=== PATIENT | female | born 1975 | race Caucasian/White ===

== ENCOUNTER → 2025-02-06 | Day surgery (SDC) | payer MEDICAID ==
[~2025-02-06] VITALS: Ht 134.6 cm; Wt 60.3 kg
[~2025-02-06] MED LIST: ASPI-1497 PO; BUPIVACAINE HCL/PF 0.5% (5MG/ML) 10ML ONE; CEFAZOLIN SODIUM 1000MG/VIAL ONE; CETI-89 PO; DAPA10TA PO; FENTANYL CITRATE/PF 50MCG/ML 2ML VIAL ONE; GLIP10TA17 PO; GLYCOPYRROLATE 0.2 MG/ML 2ML VIAL ONE; METF-416 PO; MIDAZOLAM HCL 2 MG/2 ML VIAL ONE; NEOSTIGMINE METHYLSULFATE 1MG/ML 10 ML VIAL ONE; ONDANSETRON HCL 4MG/2ML INJ ONE; PROPOFOL 200MG/20ML VIAL IV ONE; ROCURONIUM BROMIDE 10MG/ML VIAL 5ML IV ONE; SEMA0.258 SUBCUT; SKIN ADHESIVE 0.7 GM EA TOP ONE; SUGAMMADEX SODIUM 200MG/2ML VIAL IV ONE
[2025-02-06] MEDS: SODIUM CHLORIDE 0.9% 1,000 ML IV SCH (07:52)
[2025-02-06] MEDS: HYDROMORPHONE HCL/PF 1MG/ML INJ IV PRN (10:41)
[2025-02-06] MEDS: ONDANSETRON HCL 4MG/2ML INJ IV PRN (11:43)
[2025-02-06 12:05] VITALS: BP 120/62; PULSE 86; RESP 18
[2025-02-06] MEDS: ACETAMINOPHEN WITH CODEINE 300/30MG TABLET PO NR (12:05)
== END | disposition home or self-care (01) ==
LOC: OR 06:44
PROVIDERS: ATTEND Surgery
DX: K80.10 Calculus of gallbladder with chronic cholecystitis without obstruction (principal); E11.9 Type 2 diabetes mellitus without complications
CPT/HCPCS: 47562; 82962; 88304; J3010; J0665; J0690; J3490 ×2; J2250; J2405; J2704; J1171; J7030; J2710